=== PATIENT | female | born 1980 ===

== ENCOUNTER 2023-04-27 05:28 | Day surgery (SDC) | payer OTHER ==
[2023-04-27] MEDS ORDERED: PROTONIX20 MG PO (08:48)
== END 2023-04-27 11:00 | disposition home or self-care (01) ==
LOC: AMB-ENDOS 05:28 → CIR.AMB 13:15
PROVIDERS: ATTEND Surgery
DX: K29.00 Acute gastritis without bleeding (principal); R10.13 Epigastric pain; E66.09 Other obesity due to excess calories; K44.9 Diaphragmatic hernia without obstruction or gangrene; K21.9 Gastro-esophageal reflux disease without esophagitis